=== PATIENT | female | born 1990 | race Caucasian/White ===

== ENCOUNTER 2021-09-03 16:45 | Emergency (ER) | payer OTHER, SELFPAY ==
--- NOTE | ~2021-09-03 | US_ITS ---
EXAMINATION: US pelvic complete DATE: 09/03/2021 17:58 INDICATION: Ovarian cyst presenting with abdominal pain. Assess for left ovarian torsion. TECHNIQUE: Multiple transabdominal and endovaginal sonographic images of the pelvis were obtained. COMPARISON: None. FINDINGS: The uterus measures 11.1 x 4.4 x 5.6 cm. The endometrial complex measures 8 mm in thickness. The rig ht ovary measures 2.5 x 1.4 x 1.8 cm. The left ovary measures 6.5 x 6.2 x 6.1 and contains a 5.9 cm s imple appearing anechoic cyst. Vascular flow identified at both ovaries on color Doppler. There is no free fluid in the pelvis. IMPRESSION: 1. 5.9 cm left ovarian cyst with vascular flow identified at the left ovary peripheral to the cyst on color Doppler. Reviewed, dictated and finalized at location A. REPAIR TECHNICIAN IMPRESSION: 1. 5.9 cm left ovarian cyst with vascular flow identified at the left ovary per ipheral to the cyst on color Doppler.
--- NOTE | ~2021-09-03 | XR_ITS ---
EXAMINATION: XR abdomen obstructive series DATE: 09/03/2021 18:00 INDICATION: Abdominal pain TECHNIQUE: Frontal supine and upright views of the abdomen were obtained. COMPARISON: None. FINDINGS: Moderate amount of scattered colonic stool. No dilated gas-filled loops of bowel to suggest obstructi on. No pneumatosis or free intraperitoneal gas. Lung bases are clear. Heart size is normal. Mild thor acolumbar levocurvature. IMPRESSION: 1. No free intraperitoneal gas or dilated gas-filled loops of bowel to suggest obstruction. Reviewed, dictated and finalized at location A. TRONIC GLUING MACHINE OPERATOR
[2021-09-03 16:57] VITALS: BP 138/72; PULSE 76; RESP 18; TEMP 36.9; O2SAT 100
--- NOTE | 2021-09-03 17:26 | ED.ABDPAIN ---
HPI - Abdominal Pain General Chief Complaint: Abdominal Pain Stated Complaint: ovarian cys Time Seen by Provider: 09/03/21 17:26 Source: patient Mode of arrival: ambulatory Limitations: no limitations History of Present Illness HPI narrative: Patient is 30 years old white female presents with sudden onset of left lower quadrant pain started 2 hours prior to arrival to the emergency room. 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 On September 01 the patient had another pelvic ultrasound which showed that the cyst is 4.2 cm. Patient came to our emergency room today concerned about the possibility of enlargement of the cyst. Patient denies any fever, chills, nausea, vomiting, urinary symptoms, constipation, diarrhea. 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 Related Data Home Medications Medication Instructions Recorded Confirmed drospirenone-ethinyl estradiol mg PO DAILY 09/03/21 leuprolide [Lupron Depot] 10 mg IM DAILY 09/03/21 09/03/21 Allergies Allergy/AdvReac Type Severity Reaction Status Date / Time adhesive tape AdvReac Mild Redness of Verified 09/03/21 17:13 Skin Review of Systems Review of Systems: CONSTITUTIONAL: Denies fever, chills, or sweats. EYES: Denies visual changes, redness, or discharge. ENT: Denies rhinorrhea, congestion, sore throat, or otalgia. CARDIOVASCULAR: Denies chest pain, palpitations, or edema. RESPIRATORY: Denies cough or dyspnea. GASTROINTESTINAL: Denies abdominal pain, nausea, vomiting, or diarrhea. GENITOURINARY: Denies dysuria or hematuria. SKIN: Denies rash or itching. MUSCULOSKELETAL: Denies back pain, joint pain, or myalgia. NEUROLOGIC: Denies headache, numbness, or weakness. PSYCHIATRIC: Denies anxiety or depression. Exam Narrative: General appearance: Well-developed, well-nourished. Patient sitting comfortably, does not look in pain or distress. Skin: Normal color Head: Normocephalic, nontraumatic Eyes: Clear conjunctiva ENT: Oropharynx normal, ears normal, nose normal Neck: Supple, nontender Chest and respiratory: Airway patent, no respiratory distress, no accessory muscle use Heart: Regular rate/rhythm Abdomen: Soft, nontender, no organomegaly, quiet bowel sounds, no guarding or rebound Vascular: Normal peripheral pulses, normal capillary refill. Musculoskeletal: Normal range of motion, nontender back Neurologic: Alert and oriented ?3, STEWARD/STEWARDESS SECOND is normal as tested, no gross motor deficit Course Course Emergency Course: Stable Vital Signs Vital signs: Vital Signs Temperature 36.9 C 09/03/21 16:57 Pulse Rate 76 09/03/21 16:57 Respiratory Rate 18 09/03/21 16:57 Blood Pressure 138/72 09/03/21 16:57 Pulse Oximetry 100 09/03/21 16:57 Temperature 36.9 C 09/03/21 16:57 Pulse Rate 76 09/03/21 16:57 Respiratory Rate 18 09/03/21 16:57 Blood Pressure 138/72 09/03/21 16:57 Pulse Oximetry 100 09/03/21 16:57 MDM - Abdominal Pain Imaging Data Radiologist's impression: ITS Impressions Pelvis Ultrasound 09/03/21 18:24 IMPRESSION: 1. 5.9 cm left ovarian cyst with vascular flow identified at the left ovary peripheral to the cyst on color Doppler. Abdomen X-Ray 09/03/21 18:36 IMPRESSION: 1. No free intraperitoneal gas or dilated gas-filled loops of bowel to suggest obstruction. Critical Care Time Critical Care Time Critical Care Time: No Discharge Plan Discharge Clinical Impression: Cyst of left ovary Patient Disposition: Home, Self-Care Condition: Stable Instructions: Antibiotic Form, Ovarian C
--- NOTE | 2021-09-03 17:29 | PC.NURSE ---
Dr. Cruz at bedside to see patient.
--- NOTE | 2021-09-03 18:46 | PC.NURSE ---
Dr. Cruz back at bedside to discuss imaging results.
[2021-09-03 19:07] VITALS: BP 135/83; PULSE 78; RESP 12; O2SAT 99
== END 2021-09-03 19:12 | disposition home or self-care (01) ==
PROVIDERS: Emergency Provider Emergency Medicine
DX: N83.202 Unspecified ovarian cyst, left side (principal)
CPT/HCPCS: 74019; 76856; 99284

== ENCOUNTER 2021-09-27 19:03 | Emergency (ER) | payer OTHER, SELFPAY ==
[2021-09-27 19:14] VITALS: BP 113/76; PULSE 89; RESP 15; TEMP 36.3; O2SAT 100
--- NOTE | 2021-09-27 19:21 | ED.GENADULT ---
HPI - General Adult General Chief complaint: Skin/Abscess/Foreign Body Stated complaint: allergic reaction Time Seen by Provider: 09/27/21 19:06 History of Present Illness HPI narrative: 30-year-old female presents the emergency room with complaints of a rash on her abdomen that started 3 days ago. Patient states 4 days ago she had laparoscopic surgery to remove an ovarian cyst, and started on [place]. States that rash appeared after taking the [place]. States rash is now spreading to her right leg and right hip. Denies shortness of breath, difficulty breathing, fever. States is taken Benadryl on a couple occasions with no relief of symptoms. Related Data Home Medications Medication Instructions Recorded Confirmed drospirenone-ethinyl estradiol mg PO DAILY 09/03/21 leuprolide [Lupron Depot] 10 mg IM DAILY 09/03/21 09/03/21 Allergies Allergy/AdvReac Type Severity Reaction Status Date / Time adhesive tape AdvReac Mild Redness of Verified 09/03/21 17:13 Skin Review of Systems Review of Systems: CONSTITUTIONAL: Denies fever, chills, or sweats. EYES: Denies visual changes, redness, or discharge. ENT: Denies rhinorrhea, congestion, sore throat, or otalgia. CARDIOVASCULAR: Denies chest pain, palpitations, or edema. RESPIRATORY: Denies cough or dyspnea. GASTROINTESTINAL: Denies abdominal pain, nausea, vomiting, or diarrhea. GENITOURINARY: Denies dysuria or hematuria. SKIN: Reports rash. MUSCULOSKELETAL: Denies back pain, joint pain, or myalgia. NEUROLOGIC: Denies headache, numbness, dizziness, or weakness. PSYCHIATRIC: Denies anxiety or depression. Exam Narrative: GENERAL: Well-appearing, well-nourished, and in no acute distress. HEAD: Normocephalic, atraumatic. EYES: PERRLA and EOMI. ENT: Nares clear, no rhinorrhea or epistaxis. Mucous membranes moist. Oropharynx without tonsillar hypertrophy exudate or other lesions. Bilateral TMs pearly bell nonbulging NECK: Supple. No adenopathy or masses. No carotid bruits or JVD CHEST: Clear to auscultation. No respiratory distress. No wheezes rales or rhonchi HEART: Regular rate and rhythm. No murmur heard. Normal peripheral pulses. ABDOMEN: Soft, nontender, nondistended, normal active bowel sounds. EXTREMITIES: Normal range of motion. No edema. SKIN: Diffuse, erythematous, maculopapular rash distributed to the abdomen, right hip, and right anterior lower extremity.. NEURO: No focal deficits. Alert and oriented x3. PSYCH: Normal mood and affect. Course Vital Signs Vital signs: Vital Signs Temperature 36.3 C L 09/27/21 19:14 Pulse Rate 89 09/27/21 19:14 Respiratory Rate 15 09/27/21 19:14 Blood Pressure 113/76 09/27/21 19:14 Pulse Oximetry 100 09/27/21 19:14 Temperature 36.3 C L 09/27/21 19:14 Pulse Rate 89 09/27/21 19:14 Respiratory Rate 15 09/27/21 19:14 Blood Pressure 113/76 09/27/21 19:14 Pulse Oximetry 100 09/27/21 19:14 Medical Decision Making Vital Signs Vital Signs: Vital Signs Temperature 36.3 C L 09/27/21 19:14 Pulse Rate 89 09/27/21 19:14 Respiratory Rate 15 09/27/21 19:14 Blood Pressure 113/76 09/27/21 19:14 Pulse Oximetry 100 09/27/21 19:14 Temperature 36.3 C L 09/27/21 19:14 Pulse Rate 89 09/27/21 19:14 Respiratory Rate 15 09/27/21 19:14 Blood Pressure 113/76 09/27/21 19:14 Pulse Oximetry 100 09/27/21 19:14 Discharge Plan Discharge Clinical Impression: Allergic reaction to drug Qualifiers: Encounter type: initial encounter Qualified Code(s): T78.40XA - Allergy, unspecified, initial encounter Patient Disposition: Home, Self-Care Condition: Stable Instructions: Antibiotic Form Additional Instructions: Recommend taking 25 to 50 mg of Benadryl every 6-8 hours as needed for rash. May substitute Benadryl for Zyrtec or Mary if you become too sleepy with Benadryl. Prescriptions: New prednisone 20 mg tablet 40 mg PO DAILY 5 Days Qty: 10 RF: 0 famotidine [
[2021-09-27] MEDS: SODIUM CHLORIDE 0.9% IV 1,000 ML 999 ML IV CONT (19:31)
[2021-09-27] MEDS: diphenhydrAMINE HCl INJ 50 MG/ML VIAL 25 MG IV PUSH (19:36)
[2021-09-27] MEDS: methylPREDNISolone SOD SUCC 125 MG VIAL IV PUSH (19:36)
[2021-09-27] MEDS: FAMOTIDINE 20 MG/2 ML VIAL IV PUSH (19:36)
== END 2021-09-27 20:10 | disposition home or self-care (01) ==
PROVIDERS: Emergency Provider Nurse Practitioner Family
DX: L27.0 Generalized skin eruption due to drugs and medicaments taken internally (principal); T50.995A Adverse effect of other drugs, medicaments and biological substances, initial encounter
CPT/HCPCS: 96361; 96374; 96375; 99284; J1200; J2930; J7030

== ENCOUNTER 2021-10-14 10:11 | Emergency (ER) | payer OTHER, SELFPAY ==
[2021-10-14 10:42] VITALS: BP 104/86; PULSE 89; RESP 18; TEMP 36.7; O2SAT 100
--- NOTE | 2021-10-14 10:45 | ED.GENADULT ---
HPI - General Adult General Chief complaint: Upper Respiratory Infection Stated complaint: sinus pressure,lt ear pain Time Seen by Provider: 10/14/21 10:45 Source: patient and RN notes reviewed Mode of arrival: ambulatory Limitations: no limitations History of Present Illness HPI narrative: 30-year-old female presented with complaint of sinus pressure, left facial pain, and left ear pain for 1 week. Denies associated tinnitus, decreased hearing, dizziness, cough, shortness breath, wheezing, nausea, vomiting, diarrhea, fever or chills. Taking benadryl. Denies sick contacts. She is vaccinated for COVID she is not vaccinated for flu. Related Data Allergies Allergy/AdvReac Type Severity Reaction Status Date / Time hydrocodone Allergy Rash Verified 10/14/21 11:03 adhesive tape AdvReac Mild Redness of Verified 10/14/21 11:03 Skin Review of Systems Review of Systems: CONSTITUTIONAL:denies malaise, chills, sweats, fever EYES: Denies visual changes, redness, or discharge ENT: Reports rhinorrhea, congestion, sinus pain, otalgia CARDIOVASCULAR: Denies chest pain, palpitations, edema RESPIRATORY: denies cough, post nasal drainage, dyspnea GASTROINTESTINAL: Denies abdominal pain, nausea, vomiting, diarrhea SKIN: Denies rash or itching MUSCULOSKELETAL: Endorses myalgia NEUROLOGIC: Denies headache Exam Narrative: GENERAL: well appearing HEAD: Normocephalic EYES: PERRLA, conjunctivae clear ENT: Mucous membranes moist. TM pearly bell with dull light reflex bilaterally; no tragal tenderness. Oropharynx erythematous with white exudate, no drooling, no hoarseness, no trismus, uvula midline. No tripod positioning, muffled voice, soft palate or pharyngeal wall bulging NECK: Supple. No lymphadenopathy CHEST: Clear to auscultation, breath sounds equal. No wheezing, rhonchi, rales, or stridor. No respiratory distress, speaks in full sentences. HEART: Regular rate and rhythm. No murmur heard. SKIN: Warm, dry, no rash. NEURO: Alert and oriented x3. PSYCH: Normal mood and affect Course Course Emergency Course: Patient is aware of diagnosis, understands and agrees to treatment plan. Anticipatory guidance given. Patient agrees to follow-up as directed and is aware of reasons to seek care at the emergency department. Portions of this record may have been created with voice recognition software Level of Care: Express Care Visit Vital Signs Vital signs: Vital Signs Temperature 98.0 F 10/14/21 10:42 Pulse Rate 89 10/14/21 10:42 Respiratory Rate 18 10/14/21 10:42 Blood Pressure 104/86 10/14/21 10:42 Pulse Oximetry 100 10/14/21 10:42 Temperature 98.0 F 10/14/21 10:42 Pulse Rate 89 10/14/21 10:42 Respiratory Rate 18 10/14/21 10:42 Blood Pressure 104/86 10/14/21 10:42 Pulse Oximetry 100 10/14/21 10:42 reviewed Medical Decision Making MDM Narrative Medical decision making narrative: strep positive Appropriate for out pt treatment and f/u. There are no focal signs of space occupying lesions that are compromising to the airway; no dysphagia, odynophagia, dysphonia, or dyspnea. No uvular deviation or soft palate edema. Patient is non-toxic appearing. The floor of the mouth is soft with no signs of Jamil's Angina; no induration below mandible, no neck pain. Patient is without trismus or drooling and able to swallow secretions. Differential Diagnosis Differential Diagnosis: Influenza, covid, sinusitis, OM, strep pharyngitis, URI Vital Signs Vital Signs: Vital Signs Temperature 98.0 F 10/14/21 10:42 Pulse Rate 89 10/14/21 10:42 Respiratory Rate 18 10/14/21 10:42 Blood Pressure 104/86 10/14/21 10:42 Pulse Oximetry 100 10/14/21 10:42 Temperature 98.0 F 10/14/21 10:42 Pulse Rate 89 10/14/21 10:42 Respiratory Rate 18 10/14/21 10:42 Blood Pressure 104/86 10/14/21 10:42 Pulse Oximetry 100 10/14/21 10:42 Lab Data Labs: Strep Screen Positive Group A
== END 2021-10-14 11:16 | disposition home or self-care (01) ==
PROVIDERS: Emergency Provider Nurse Practitioner Family
DX: J02.0 Streptococcal pharyngitis (principal)
CPT/HCPCS: 87880; 99213; G0463

== ENCOUNTER 2022-05-02 12:04 | Observation (INO) | payer BC, SELFPAY ==
--- NOTE | ~2022-05-02 | US_ITS ---
EXAMINATION: US right upper quadrant DATE: 05/02/2022 13:57 INDICATION: Right upper quadrant abdominal pain. Second trimester of . TECHNIQUE: Multiple grayscale and Doppler ultrasound images of the abdomen were obtained. COMPARISON: None FINDINGS: The visualized portions of the head, body, and tail of the pancreas are normal. The liver i s normal without focal lesion. There is normal flow in main portal vein. The gallbladder is normal in size. No gallstones or gallbladder wall thickening. There was no sonographic Irizarry sign. The common duct is normal and measures 2 mm. IMPRESSION: 1. Normal right upper quadrant ultrasound. Reviewed, dictated and finalized at location A.
--- NOTE | 2022-05-02 12:30 | OBADM ---
This patient, Tati Pepper, admitted to the OB room [facility] for observation. Patient/family oriented to hospital policies and general routines including ID bracelet, bed and alarms, visiting hours, pain management, procedures, bathroom and other care routines, personal items, smoking policy, room service/diet, and visiting hours. Patient/Family are encouraged to report perceived risks to care and to ask questions if they do not understand what they are told or what they should do.
[2022-05-02 12:31] VITALS: BP 114/67; PULSE 97
--- NOTE | 2022-05-02 12:50 | PC.NURSE ---
1232- Spoke with Dr. pena, Orders to draw CBC, CMP and lipase, and orders RUQ US.
[2022-05-02 12:55] LABS: Hematocrit 35.3 % (37.0-47.0); Hemoglobin 12.4 g/dL (12.0-15.0); Mean Corpuscular HGB Conc 35.1 g/dl (32-36); Mean Corpuscular Hemoglobin 31.9 pg (26-34); Mean Corpuscular Volume 90.7 fl (80-100); Mean Platelet Volume 9.5 fl (7.4-10.4); Platelet Count Result 223 k/mm3 (150-375); Red Blood Count 3.89 M/mm3 (4.2-5.4); Red Cell Distribution Width 14.1 % (11.5-14.5); White Blood Count 13.5 K/mm3 (4.5-10.0)
[2022-05-02 13:09] LABS: Alanine Aminotransferase 18 U/L (6-35); Albumin Level 3.6 g/dL (3.5-5.1); Alkaline Phosphatase 78 U/L (38-126); Anion Gap 5 mmol/L (8-16); Aspartate Amino Transferase 21 U/L (14-36); Bilirubin,Total 0.4 mg/dL (0.2-1.3); Blood Urea Nitrogen 6 mg/dL (7-17); Calcium 8.4 mg/dL (8.4-10.2); Carbon Dioxide 20 mmol/L (22-30); Chloride 108 mmol/L (98-107); Estimated Glomerular Filt Rate > 60; Glucose 77 mg/dL (65-110); Lipase 45 U/L (23-300); Potassium 3.9 mmol/L (3.4-5.0); Sodium 133 mmol/L (137-145)
--- NOTE | 2022-05-02 15:18 | PC.NURSE ---
1452- SPoke with Dr. Garcia, labs and US reviewed. Orders to discharge to home.
--- NOTE | 2022-05-05 05:38 | PM.OBTRLD ---
OB - Triage/Final Diagnosis Visit Information Comments/Additional reasons for admission: I have assessed the risk for this patient, Tati Pepper, and determined that she would benefit from observation care. Evaluation Laboratory results: Laboratory Tests 05/02/22 05/02/22 12:40 12:40 WBC 13.5 H RBC 3.89 L Hgb 12.4 Hct 35.3 L MCV 90.7 MCH 31.9 MCHC 35.1 RDW 14.1 Plt Count 223 MPV 9.5 Sodium 133 L Potassium 3.9 Chloride 108 H Carbon Dioxide 20 L Anion Gap 5 L BUN 6 L Creatinine 0.50 L Estim Creat Clear Calc Not Reportable Estimated GFR > 60 Glucose 77 Calcium 8.4 Total Bilirubin 0.4 AST 21 ALT 18 Alkaline Phosphatase 78 Total Protein 7.0 Albumin 3.6 Lipase 45 Final Diagnosis (1) Abdominal pain affecting : Code(s): O26.899 - Other specified related conditions, unspecified trimester; R10.9 - Unspecified abdominal pain Status: Acute
== END 2022-05-02 15:20 | disposition home or self-care (01) ==
PROVIDERS: Admitting Provider Obstetrics & Gynecology; Visit Provider Obstetrics & Gynecology
DX: O26.899 Other specified pregnancy related conditions, unspecified trimester (principal); R10.9 Unspecified abdominal pain; Z3A.00 Weeks of gestation of pregnancy not specified
CPT/HCPCS: 36415; 76705; 80053; 83690; 85027; G0378; G0379

== ENCOUNTER 2022-05-27 16:41 | Outpatient (RCR) | payer BC, SELFPAY ==
[2022-05-27 17:56] LABS: Basophils Percent Auto 0.3 % (0.2-1.2); Eosinophils Absolute Auto 0.1 K/mm3 (0-0.3); Eosinophils Percent Auto 0.8 % (0-4.4); Hematocrit 33.6 % (37.0-47.0); Hemoglobin 11.6 g/dL (12.0-15.0); Immature Granulocyte Absolute 0.11 K/mm3 (0.00-0.031); Lymphocytes Absolute Auto 2.73 K/mm3 (0.9-3.2); Lymphocytes Percent Auto 23.8 % (18.3-44.2); Mean Corpuscular HGB Conc 34.5 g/dl (32-36); Mean Corpuscular Hemoglobin 32.6 pg (26-34); Mean Corpuscular Volume 94.4 fl (80-100); Monocytes Absolute Auto 0.6 K/mm3 (0.1-0.6); Monocytes Percent Auto 5.4 % (2.6-8.5); Neutrophils Absolute Auto 7.9 K/mm3 (1.3-6.7); Neutrophils Percent Auto 68.7 % (45.5-73.1); Platelet Count Result 218 k/mm3 (150-375); Red Blood Count 3.56 M/mm3 (4.2-5.4); Red Cell Distribution Width 13.8 % (11.5-14.5); White Blood Count 11.5 K/mm3 (4.5-10.0)
[2022-05-27 18:07] LABS: Glucose 1 Hour PP 50gm Dose 96 mg/dL
[2022-05-27 18:49] LABS: HIV 1/2 Ab P24 Ag Result Negative (Negative)
[2022-05-30] MEDS: RHO(D) IMMUNE GLOBULIN 300 MCG/2 ML SYRINGE IM (12:06)
== END 2022-08-25 23:59 | disposition home or self-care (01) ==
LOC: ANHLAB 16:41
PROVIDERS: Visit Provider Obstetrics & Gynecology
DX: Z11.4 Encounter for screening for human immunodeficiency virus [HIV] (principal); Z29.13 Encounter for prophylactic Rho(D) immune globulin; O36.0190 Maternal care for anti-D [Rh] antibodies, unspecified trimester, not applicable or unspecified; Z3A.00 Weeks of gestation of pregnancy not specified
CPT/HCPCS: 36415; 82947; 85025; 85461; 86703; 86850; 86900; 86901; 90384; 96372; G0432; J2790

== ENCOUNTER 2022-06-25 10:15 | Emergency (ER) | payer BC, SELFPAY ==
[2022-06-25 10:23] VITALS: BP 104/57; PULSE 139; RESP 18; TEMP 37.2; O2SAT 100
--- NOTE | 2022-06-25 10:54 | ED.URI ---
HPI - URI/Sore Throat General Chief Complaint: Upper Respiratory Infection Stated Complaint: Congestion,Cough Source: patient Mode of arrival: ambulatory History of Present Illness HPI Narrative: This is a woman that is due in July 20 and presented to our urgent care with complaints of congestion, with a wet cough nonproductive, sore throat, body aches, and chills. Patient is not taking anything at for her symptoms due to her . She also does complain of slight shortness of breath. The patient denies , CP, palpitation, extremity numbness, lightheadedness, dizziness, constipation, diarrhea, or fever. Related Data Home Medications Medication Instructions Recorded Confirmed vitamin-ferrous fumarate 1 cap PO DAILY 02/09/22 06/25/22 65 mg iron-folic acid 1 mg capsule magnesium citrate,mag oxide 250 mg 25 mg PO DAILY 04/06/22 06/25/22 capsule Allergies Allergy/AdvReac Type Severity Reaction Status Date / Time hydrocodone Allergy Severe Rash Verified 06/25/22 10:23 adhesive tape AdvReac Mild Redness of Verified 06/25/22 10:23 Skin Review of Systems Review of Systems: All systems reviewed & are unremarkable except as noted in HPI and below PMFSH Surgical History Surgical History H/O tubal ligation (~07/19/18) Hx of ovarian cystectomy (~09/25/21) Family History Family History Father Testicular cancer Social History Social History Smoking status: Former smoker Smoking end date: 07/19/19 Alcohol intake: never Substance use: never Substance use type: does not use Additional living arrangements comments: 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 HEAD: normocephalic, atraumatic. EYES: PERRL. Sclera clear/white. Vision is grossly intact. EARS: External ears normal, auditory canals clear and without drainage, TMs normal without perforation. Hearing grossly intact. NOSE: External nose normal with no obvious nasal discharge, nares without redness, no rhinorrhea. THROAT: Mucous membranes moist, posterior pharynx clear. NECK: Neck supple, non-tender without lymphadenopathy, masses or thyromegaly. CARDIOVASCULAR: Regular rate and rhythm without murmurs, gallops, or rubs. RESPIRATORY: Clear to auscultation. Breath sounds equal bilaterally. No wheezes, rales, or rhonchi. GASTROINTESTINAL: Abdomen soft, non-tender, nondistended. Bowel sounds are active. No hepato-splenomegaly, or palpable masses. No guarding. SKIN: warm, intact with no suspicious lesions or rash, good texture and turgor. NEURO: awake, alert, and oriented to person, place and time. There were no obvious focal neurologic abnormalities. EXTREMITIES: Normal range of motion. No edema. No calf tenderness. Course Course Level of Care: Express Care Visit Vital Signs Vital signs: Vital Signs Temperature 98.9 F 06/25/22 10:23 Pulse Rate 139 H 06/25/22 10:23 Respiratory Rate 18 06/25/22 10:23 Blood Pressure 104/57 L 06/25/22 10:23 Pulse Oximetry 100 06/25/22 10:23 Oxygen Delivery Room Air 06/25/22 10:23 Temperature 98.9 F 06/25/22 10:23 Pulse Rate 139 H 06/25/22 10:23 Respiratory Rate 18 06/25/22 10:23 Blood Pressure 104/57 L 06/25/22 10:23 Pulse Oximetry 100 06/25/22 10:23 Oxygen Delivery Room Air 06/25/22 10:23 MDM - URI/Sore Throat MDM Narrative Medical decision making narrative: Patient will discharge with albuterol given a list medications that she can buy over the counter the safe is her and instructed to call her OB Gyne for additional instructions
== END 2022-06-25 10:55 | disposition home or self-care (01) ==
PROVIDERS: Emergency Provider Nurse Practitioner
DX: O98.519 Other viral diseases complicating pregnancy, unspecified trimester (principal); B34.9 Viral infection, unspecified; Z3A.00 Weeks of gestation of pregnancy not specified; Z87.891 Personal history of nicotine dependence
CPT/HCPCS: 99213; G0463

== ENCOUNTER 2022-07-07 13:30 | Outpatient (RCR) | payer BC, SELFPAY ==
--- NOTE | 2022-06-10 11:38 | PTOPEVAL1 ---
Assessment and note entered by Dulce Stewart DPT Evaluation Information Assessment Status Evaluation Subjective Information Pt reports L SIJ pain for at least several weeks. Highest pain 9/10 and lowest 0/10. Pain is localized to L PSIS, no radiation. Pain increases with the act of sitting down, sometimes turning her body to the right, getting in/out of the car, and rolling over in bed. Pt is currently 30 weeks . Reports difficulty with her normal work activities due to the pain. This is patient's 4th , did not have this kind of back pain previously. Reported Pain Level Pain Score 0: Self Report Assessment PT Clinical Summary The patient is presenting to skilled therapy at 30 weeks with a several week history of L SIJ pain. She presents with SIJ impairments that are contributing to her pain with position changes and other activities. She will benefit from therapy to address these impairments and safely reduce pain as her progresses. Plan of Care Interventions Gait Training,Hot Pack/Cold Pack,Manual Therapy, Neuro Re-education,Patient/Caregiver Education, Therapeutic Activities,Therapeutic Exercise,Self- Care/Home Management PT Services Indicated Yes Treatment Frequency and 1 time a week for 4 weeks Duration These treatments will address the objective and functional deficits as defined above. The patient will be advanced safely and appropriately in order for the patient to progress towards his/her prior level of function. Additional exercises will be introduced and as well as a comprehensive home exercise program upon discharge, if needed, ?to ensure carryover of functional gains achieved in the clinic. This treatment plan has been reviewed and agreement upon by the patient.
--- NOTE | 2022-07-07 13:58 | PTOPPROGNS ---
Assessment and note entered by Dulce Stewart DPT Evaluation Information Assessment Status Progress Subjective Information The patient reports she has had no recent pain, the therapy worked . 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 Assessment PT Clinical Summary The patient has made excellent progress in therapy and reports no recent pain or limitation. She feels confident in continuing her HEP independently. She has been educated if her pain returns in the next 6 weeks until delivery she can call and schedule therapy. Otherwise, this visit will serve as her discharge. Plan of Care PT Services Indicated No These treatments will address the objective and functional deficits as defined above. The patient will be advanced safely and appropriately in order for the patient to progress towards his/her prior level of function. Additional exercises will be introduced and as well as a comprehensive home exercise program upon discharge, if needed, ?to ensure carryover of functional gains achieved in the clinic. This treatment plan has been reviewed and agreement upon by the patient.
--- NOTE | 2022-07-27 13:04 | PTOPDC ---
Assessment and note entered by Dulce Stewart DPJamie Evaluation Information Assessment Status Progress Subjective Information The patient reports she has had no recent pain, the therapy worked . 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
== END 2022-07-27 14:10 | disposition home or self-care (01) ==
LOC: ANHGOSHPT 13:30
PROVIDERS: Visit Provider Obstetrics & Gynecology
DX: M25.559 Pain in unspecified hip (principal); N94.9 Unspecified condition associated with female genital organs and menstrual cycle
CPT/HCPCS: 97110; 97140; 97161

== ENCOUNTER 2022-08-03 18:57 | Observation (INO) | payer BC, SELFPAY ==
[2022-08-03 21:33] VITALS: BMI 29.6
--- NOTE | 2022-08-03 21:33 | OBADM ---
This patient, Tati Pepper, admitted to the OB room Labor/Delivery/Recovery 104 for observation. Patient/family oriented to hospital policies and general routines including ID bracelet, bed and alarms, visiting hours, pain management, procedures, bathroom and other care routines, personal items, smoking policy, room service/diet, and visiting hours. Patient/Family are encouraged to report perceived risks to care and to ask questions if they do not understand what they are told or what they should do.
--- NOTE | 2022-08-04 07:38 | PM.OBTRLD ---
OB - Triage/Final Diagnosis Visit Information Date of evaluation: 08/03/22 Reason for evaluation: threatened labor Comments/Additional reasons for admission: I have assessed the risk for this patient, Tati Pepper, and determined that she would benefit from observation care.
== END 2022-08-03 21:45 | disposition home or self-care (01) ==
PROVIDERS: Admitting Provider Student in an Organized Health Care Education/Training Program; Visit Provider Student in an Organized Health Care Education/Training Program
DX: O47.1 False labor at or after 37 completed weeks of gestation (principal); Z3A.38 38 weeks gestation of pregnancy
CPT/HCPCS: G0378; G0379

== ENCOUNTER 2022-08-07 06:25 | Inpatient (IN) | payer BC, SELFPAY ==
[2022-08-07] VITALS (74 sets, daily range): BP systolic 106–137; BP diastolic 56–95; PULSE 26–152; RESP 16–18; TEMP 36.6–37.6; O2SAT 81–100; BMI 29.5
--- OUTSIDE RECORDS SUMMARY | 2022-08-07 06:32 | XMS_ITS | Continuity of Care Document ---
Author Name Unknown Organization [facility] Address [address], [place] [id number] Care Team Providers Care Customer Support Representative Name Role Phone [facility], FAX Primary Care Physician Unavailab le Encounter [facility] Financial Number [id number] Date(s): 12/08/21 - 12/08/[address] [phone] Discharge Disposition: Home or Self Care Attending Physician: NOLA Cabral Referring Physician: NOLA Cabral Problem List Diagnosis Diagnosis Type Effective Dates Health Status Cl inical Service Informant Encounter for test, result unknown 12/08/21 Non-Specified Encounter for screening for other suspected endocrine disorder 12/08/21 Non-Specified Encounter for test, result unknown 12/08/21 Non-Specified Encounter for screening for other suspected endocrine disorder 12/08/21 Non-Specified Encounter for test, result unknown 12/08/21 Non-Specified Encounter for screening for other suspected endocrine disorder 12/08/21 Non-Specified Results Laboratory List Name Date Estradiol Level 12/08/21 HCG, Quantitative Serum 12/08/21 Progesterone Level 12/08/21 Most recent to oldest [Reference Range]: 1 Estradiol 569.7 pg/mL (12/08/21 12:08 PM) Progesterone 38.6 ng/mL (12/08/21 12:08 PM) hCG, Quantitative 326 mIU/mL (12/08/21 12:08 PM) Care Team Personnel Name: Marianna, FAX
[2022-08-07] MEDS: LACTATED RINGERS 1,000 ML 125 ML IV CONT ×2 (07:15→08:01)
[2022-08-07] MEDS: OXYTOCIN 30 UNITS/NS 500 ML 30 UNITS/500 ML BAG IV CONT (07:16)
--- NOTE | 2022-08-07 07:17 | WPDANESEPP ---
Anes - Eval Pre Procedure Procedure: labor epidural Date/Time: 08/07/22 07:17 Preop Diagnosis: labor pain Pre Op Diagnosis: Induction of Labor Patient Data Age: 31 Gender: F Height: Weight: Last Vital Signs Pulse 95 08/07/22 07:10 BP 117/75 08/07/22 07:10 Allergies Allergy/AdvReac Type Severity Reaction Status Date / Time hydrocodone Allergy Severe Rash Verified 08/03/22 09:34 adhesive tape AdvReac Mild Redness of Verified 08/03/22 09:34 Skin Home Medications Medication Instructions Recorded Confirmed Type vitamin-ferrous fumarate 1 cap PO DAILY 02/09/22 07/29/22 History 65 mg iron-folic acid 1 mg capsule magnesium citrate,mag oxide 250 mg 25 mg PO DAILY 04/06/22 07/29/22 History capsule albuterol sulfate 90 mcg/actuation 2 puff inhalation QID PRN 06/25/22 07/29/22 Rx aerosol inhaler shortness of breath or wheezing #8.5 grams albuterol sulfate 90 mcg/actuation 90 mcg inhalation Q6H PRN 06/25/22 07/29/22 Rx breath activated powder shortness of breath 4 weeks #1 ea inhaler,sensor diphenhydramine HCl 25 mg capsule 25 mg PO QHS PRN 08/03/22 History (Benadryl) Laboratory Tests 08/07/22 08/07/22 07:08 07:08 WBC Pending RBC Pending Hgb Pending Hct Pending MCV Pending MCH Pending MCHC Pending RDW Pending Plt Count Pending MPV Pending Immature Gran % (Auto) Pending Neut % (Auto) Pending Lymph % (Auto) Pending [place] % (Auto) Pending Eos % (Auto) Pending Baso % (Auto) Pending Lymph # (Auto) Pending [place] # (Auto) Pending Eos # (Auto) Pending Baso # (Auto) Pending Abs Immat Gran (auto) Pending Absolute Neuts (auto) Pending Absolute Nucleated RBC Pending Nucleated RBC % Pending RPR Pending Patient hx anesthesia problems: none Family hx anesthesia problems: none Results Review: All pre-operative results and documents have been reviewed as part of the pre-operative evaluation. 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
[2022-08-07 07:20] LABS: Basophils Percent Auto 0.3 % (0.2-1.2); Eosinophils Absolute Auto 0.1 K/mm3 (0-0.3); Hematocrit 37.4 % (37.0-47.0); Immature Granulocyte Absolute 0.09 K/mm3 (0.00-0.031); Lymphocytes Absolute Auto 2.57 K/mm3 (0.9-3.2); Lymphocytes Percent Auto 27.6 % (18.3-44.2); Mean Corpuscular HGB Conc 34.8 g/dl (32-36); Mean Corpuscular Hemoglobin 32.7 pg (26-34); Mean Platelet Volume 9.8 fl (7.4-10.4); Monocytes Absolute Auto 0.6 K/mm3 (0.1-0.6); Monocytes Percent Auto 5.9 % (2.6-8.5); Neutrophils Percent Auto 64.2 % (45.5-73.1); Platelet Count Result 185 k/mm3 (150-375); Red Blood Count 3.98 M/mm3 (4.2-5.4); Red Cell Distribution Width 13.5 % (11.5-14.5); White Blood Count 9.3 K/mm3 (4.5-10.0)
--- NOTE | 2022-08-07 07:47 | WPDHPUPDATE1 ---
History and Physical Update Update Date/Time: 08/07/22 07:47 History and Physical has been reviewed, including an updated exam of the patient. There are NO changes in the patient's condition. Risks, benefits, and alternatives have been discussed and questions answered. Patient agrees to proceed with procedure.
--- NOTE | 2022-08-07 07:47 | WPDOBADMIT ---
Obstetrics - Admit Note Admission Note: record reviewed. No pertinent additions to the history and/or any subsequent changes in the physical findings that are not consistent with the expected course of the were found. Additions to the history and/or subsequent changes in the physical findings follow. None.
--- NOTE | 2022-08-07 07:49 | LDADM ---
This patient, Tati Pepper, was admitted to Labor/Delivery/Recovery 108 on 08/07/22 at 06:25. Plans for labor, pain management and were discussed with patient. Patient/family oriented to hospital policies and general routines including ID bracelet, bed and alarms, visiting hours, pain management, procedures, bathroom and other care routines, personal items, smoking policy, room service/diet and guest tray routines, infant security routines, and visiting hours. Patient/Family are encouraged to report perceived risks to care and to ask questions if they do not understand what they are told or what they should do. See OBIX for further documentation.
--- NOTE | 2022-08-07 10:24 | WPDHPUPDATE1 ---
History and Physical Update Update Date/Time: 08/07/22 10:24 History and Physical has been reviewed, including an updated exam of the patient. There are NO changes in the patient's condition. Risks, benefits, and alternatives have been discussed and questions answered. Patient agrees to proceed with procedure.
--- NOTE | 2022-08-07 10:24 | PM.OBPRVD ---
OB - Delivery Note Procedure Induction method: AROM and Per Pitocin Protocol Delivery monitor: External FHT and External Uterine Route of delivery: Episiotomy description: None Laceration Description: None Specimen: No Quantitative Blood Loss (ml): 350 Anesthesia type: Epidural Disposition: Floor Complications: none Narrative: patient prepped and draped usual manner for this procedure. Maternal expulsive effort readily delivered vertex in the rest of baby followed without difficulty. Cord was clamped and cut and the placenta delivered spontaneously. Uterus was well contracted and no significant bleeding was encountered. Cervix vagina and vulva were inspected with no tears or lacerations. At this point the immediate postop condition of mother and baby were both excellent. [place] Baby Weeks of gestation at delivery: 39 Infant gender: Female Weight (pounds): 8 Weight (ounces): 0 presentation: vertex Placenta delivery description: Spontaneous Cord Vessel Description: 3 Vessels score one minute: 9 score five minutes: 9 AMG Delivery Billing Delivery Delivery: Delivery Charge
--- NOTE | 2022-08-07 10:27 | P.DS_ITS ---
DS: Admitting Diagnosis Discharge Date 08/08/2022 Admitting Diagnosis OB - DS: Summary OB Procedures : None OB Procedures Intrapartum: Spontaneous Vag Delivery OB Procedures: : None Time Spent with Patient Time attestation: Total time spent providing and/or coordinating discharge services: DS: Data Data Completed and Pending Labs on day of discharge: Labs from last 24 hours 08/07/22 08/07/22 08/07/22 07:08 07:08 07:08 WBC 9.3 RBC 3.98 L Hgb 13.0 Hct 37.4 MCV 94.0 MCH 32.7 MCHC 34.8 RDW 13.5 Plt Count 185 MPV 9.8 Immature Gran % (Auto) 1.0 H Neut % (Auto) 64.2 Lymph % (Auto) 27.6 [place] % (Auto) 5.9 Eos % (Auto) 1.0 Baso % (Auto) 0.3 Lymph # (Auto) 2.57 [place] # (Auto) 0.6 Eos # (Auto) 0.1 Baso # (Auto) 0.0 Abs Immat Gran (auto) 0.09 H Absolute Neuts (auto) 6.0 Absolute Nucleated RBC 0.0 Nucleated RBC % 0.0 RPR Pending Blood Type O Negative Antibody Screen Positive Antibody Identification Pending Antigen Identification Pending AFSANEH, IgG Interpret Pending AFSANEH, Poly Interpret Pending AFSANEH, Complement Interp Pending Discharge Plan Discharge Discharging Clinician: Hector Gorman Patient Disposition: Home, Self-Care Activity: as tolerated Diet: as tolerated Patient Instructions: Antibiotic Form Stand Alone Forms: General Discharge Information Follow-up/Referrals: Hector Gorman MD [Physician] - 3 Weeks Discharge Medications: New ibuprofen 800 mg tablet 800 mg PO TID PRN (Reason: pain) Qty: 30 0RF Continued magnesium citrate,mag oxide 250 mg capsule 25 mg PO DAILY diphenhydramine HCl [Benadryl] 25 mg capsule 25 mg PO QHS PRN (Reason: Sleep) vit-iron fum-folic ac 65 mg iron- 1 mg capsule 1 cap PO DAILY Date of admission: 08/07/22 06:25 Primary Care Provider: [place], Admitting Provider: Hector Gorman Attending physician on admission: Hector Gorman Condition: Stable
[2022-08-07] MEDS: OXYTOCIN 30 UNITS/NS 500 ML 30 UNITS/500 ML BAG 125 UNITS IV CONT (10:35)
[2022-08-07 14:20] LABS: Rapid Plasma Reagin Non-Reactive (NonReactive)
[2022-08-07] MEDS: WITCH HAZEL 40 PADS 1 PAD TOPICAL (14:22)
--- NOTE | 2022-08-07 14:34 | OBPPTRN ---
Patient transferred to post room # 276 via wheelchair. Oriented to unit, room, information board, rooming in, admission packet and security measures. Patient verbalizes understanding.
[2022-08-07] MEDS: IBUPROFEN 600 MG TABLET PO (19:43)
[2022-08-08 04:28] VITALS: BP 119/74; PULSE 77; RESP 18; TEMP 37.1; O2SAT 100
[2022-08-08 05:25] LABS: Hematocrit 33.4 % (37.0-47.0); Hemoglobin 11.5 g/dL (12.0-15.0)
[2022-08-08 08:00] VITALS: BP 101/67; PULSE 89; RESP 16; TEMP 36.6; O2SAT 96
--- NOTE | 2022-08-08 08:04 | PM.OBPNVD ---
OB - PN: Subj Subjective Date/time seen: 08/08/22 0700 Patient comments: no complaints and pain well controlled baby status: other (surrogate ) OB - PN: Obj Data Labs 08/08/22 03:54 Labs: Laboratory Results - last 24 hr 08/07/22 08/07/22 08/08/22 07:08 07:08 03:54 Hgb 11.5 L Hct 33.4 L RPR Non-reactive Blood Type O Negative Antibody Screen Positive Antibody Identification Inconclusive Antigen Identification Not Reportable AFSANEH, IgG Interpret Not Performed AFSANEH, Poly Interpret Neg AFSANEH, Complement Interp Not Performed 08/08/22 03:54 Hgb Hct RPR Blood Type O Negative Antibody Screen Antibody Identification Antigen Identification AFSANEH, IgG Interpret AFSANEH, Poly Interpret AFSANEH, Complement Interp OB - PN A/P Plan day: 1 Plan: discharge home Time Spent With Patient Time: Total time spent is greater than 50% in coordination of care (as documented) at patient's floor/unit and/or counseling patient: Review of Systems Review of Systems: All systems reviewed & are unremarkable except as noted in HPI and below Exam Narrative: Alert and oriented. Mood is pleasant and cooperative. Urinating without difficulty. Denies passing any large clots. Perineum with minimal edema. Fundus firm and below umbilicus. Const: General: cooperative, healthy appearing, no acute distress and alert Orientation/consciousness: patient oriented x3 Limitations: no limitations Resp: Effort & Inspection: normal respiratory effort Auscultation: clear to auscultation bilaterally Cardio: Rate: regular rate GI: Inspection: normal to inspection Neuro: General: patient oriented x3 Extrem: General: normal to inspection Psych: Appearance: grossly normal Mental Status: mental status grossly normal Affect: normal affect Thought process: Normal thought process present
--- NOTE | 2022-08-08 08:55 | WPDANLDPN2 ---
Anes-Prog Note L&D Date/Time: 08/08/22 08:55 Comfortable throughout: labor and delivery Neuraxial method: epidural Epidural/Spinal procedure site: clean & non-tender Neuro status: Neuro function grossly intact. Cardiovascular status: normal Respiratory status: normal Airway patency: baseline Mental status: baseline Post-Op hydration status: normal Vital Signs: Last Vital Signs Temp 37.1 C 08/08/22 04:28 Pulse 77 08/08/22 04:28 Resp 18 08/08/22 04:28 BP 119/74 08/08/22 04:28 Pulse Ox 100 08/08/22 04:28 O2 Del Method Room Air 08/07/22 20:00 Pain score (VAS): 0 Post-procedural complaints: none Patient feedback: Patient satisfied with anesthetic care.
[2022-08-08] MEDS: RHO(D) IMMUNE GLOBULIN 300 MCG/2 ML SYRINGE IM (11:32)
== END 2022-08-08 11:43 | disposition home or self-care (01) | DRG 807 ==
LOC: ANHLDR 10:32 → ANHOB2 14:41
PROVIDERS: Admitting Provider Obstetrics & Gynecology; Visit Provider Obstetrics & Gynecology
DX: O62.3 Precipitate labor (principal); Z37.0 Single live birth; Z3A.39 39 weeks gestation of pregnancy
CPT/HCPCS: 36415; 85014; 85018; 85025; 85461; 86592; 86850; 86880; 86900; 86901; 86902; 90384; A9270; J2590; J2790; J2795; J7120

== ENCOUNTER 2022-09-28 08:13 | Emergency (ER) | payer BC, OTHER, SELFPAY ==
[2022-09-28 08:54] VITALS: BP 121/70; PULSE 84; RESP 18; TEMP 36.5; O2SAT 99
--- NOTE | 2022-09-28 09:26 | ED.URI ---
HPI - URI/Sore Throat General Chief Complaint: Upper Respiratory Infection Stated Complaint: sorethroat Source: patient Mode of arrival: ambulatory Limitations: no limitations History of Present Illness HPI Narrative: 31-year-old female presents to [facility] with complaints of sore throat and runny nose for the past 2-3 days. 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 Patient has not tried taking any [id number] medications for her symptoms. Patient denies shortness of breath, wheezing, cough, congestion, nausea, vomiting, diarrhea. MD elicited complaint: sore throat and rhinorrhea Onset (ago): day(s) (2) Severity: mild Able to tolerate fluids by mouth: Yes Exacerbating factors: swallowing Context: sick contacts Associated symptoms: denies other symptoms Treatments prior to arrival: none Related Data Home Medications Medication Instructions Recorded Confirmed No Home Medications 09/28/22 09/28/22 Allergies Allergy/AdvReac Type Severity Reaction Status Date / Time hydrocodone Allergy Severe Rash Verified 09/28/22 09:00 dermaflex Allergy Redness of Uncoded 09/28/22 09:00 Skin Review of Systems Constitutional: Constitutional: Denies chills, Denies fatigue, Denies fever(s) and Denies weakness ENT: Denies vertigo, Denies dizziness and Reports sore throat Comments: runny nose Cardiovascular: Cardiovascular: Denies chest pain Respiratory: Respiratory: Denies cough, Denies dyspnea and Denies wheezing Gastrointestinal: Gastrointestinal: Denies abdominal pain, Denies diarrhea and Denies nausea Integumentary/Breasts: Skin/Breast: Denies rash PMFSH Surgical History Surgical History H/O tubal ligation (~07/19/18) Hx of ovarian cystectomy (~09/25/21) Family History Family History Father Testicular cancer Grandparent Colon cancer Grandparent Lung cancer Grandparent Diabetes mellitus Social History Social History Smoking status: Former smoker Smoking end date: 08/07/19 Alcohol intake: never Substance use: never Substance use type: does not use Lack of Transportation: No Lack of Food: Never True Current Housing: I Have Housing Concerned About Future Housing: No Difficulty Paying Gas/Electric Bills: No Difficulty Paying for Meds: No Currently Unemployed: No Education: Associate Degree Difficulty w/ Childcare or Family Care: No Living arrangements: other Additional living arrangements comments: Occupation/Education: occupation 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 There is no relevant family history pertinent to the presenting complaint. Exam Const: General: healthy appearing and no acute distress Nutritional Appearance: well nourished Orientation/consciousness: patient oriented x3 Limitations: no limitations HENMT: Head: normal to inspection Ears: external ears normal, TM's normal bilaterally and EAC's normal Face/Nose/Sinus: Normal external nose present and Normal nares present Mouth: Yes Normal oral and palatal mucosa present, Yes lip normal and Yes moist mucous membranes Teeth and gingiva: dentition normal Throat: posterior oropharynx normal and uvula midline Eyes: Conjunctivae: conjunctivae normal Neck: Neck: normal visual inspection Chest: Chest palpation & inspection: normal inspection of the chest Resp: Effort & Inspection: normal respiratory effort and not labored Auscultation: clear to auscultation bilaterally, no crackles, no rales and no rh
== END 2022-09-28 09:35 | disposition home or self-care (01) ==
PROVIDERS: Emergency Provider Nurse Practitioner Family
DX: J02.9 Acute pharyngitis, unspecified (principal); Z87.891 Personal history of nicotine dependence
CPT/HCPCS: 87081; 87880; 99213; G0463

== ENCOUNTER 2023-08-22 19:30 | Emergency (ER) | payer OTHER, SELFPAY ==
--- NOTE | ~2023-08-22 | XR_ITS ---
EXAM: XR ankle LT min 3V DATE: 08/22/2023 19:56 HISTORY: rolled left ankle, pain and swelling on distal fib . COMPARISON: None available. FINDINGS: Normal mineralization. No fracture or dislocation. No lytic or blastic lesion. Joint space s are maintained. No erosion or periosteal change. Small joint effusion. Anterior and lateral soft ti ssue swelling. IMPRESSION: No acute osseous finding in the left ankle. Reviewed, dictated and finalized at location K. MANAGER
--- NOTE | 2023-08-22 19:33 | ED.GENADULT ---
HPI - General Adult General Chief complaint: Extremity Injury, Lower Stated complaint: lt ankle injury Time Seen by Provider: 08/22/23 19:33 Source: patient Mode of arrival: ambulatory Limitations: no limitations History of Present Illness HPI narrative: 32-year-old female patient presents to the [facility] with complaints of left ankle pain. Patient states she was at a swim meet today and went to go and step down off of the step and missed a step and rolled her ankle and fell. Patient states she has been taking some ibuprofen today for the pain and trying to elevate it and ice it. Patient denies any numbness or tingling to the toes. Patient states it is painful to put weight on. Related Data Home Medications Medication Instructions Recorded Confirmed No Home Medications 09/28/22 08/22/23 Allergies Allergy/AdvReac Type Severity Reaction Status Date / Time hydrocodone Allergy Severe Rash Verified 08/22/23 19:44 dermaflex Allergy Redness of Uncoded 08/22/23 19:44 Skin Review of Systems Review of Systems: CONSTITUTIONAL: Denies fever, chills, or sweats. EYES: Denies visual changes, redness, or discharge. ENT: Denies rhinorrhea, congestion, sore throat, or otalgia. CARDIOVASCULAR: Denies chest pain, palpitations, or edema. RESPIRATORY: Denies cough or dyspnea. GASTROINTESTINAL: Denies abdominal pain, nausea, vomiting, or diarrhea. GENITOURINARY: Denies dysuria or hematuria. SKIN: Denies rash or itching. MUSCULOSKELETAL: Denies back pain, joint pain, or myalgia. Positive left ankle pain NEUROLOGIC: Denies headache, numbness, or weakness. PSYCHIATRIC: Denies anxiety or depression. [facility] Surgical History Surgical History H/O tubal ligation (~07/19/18) Hx of ovarian cystectomy (~09/25/21) Family History Family History Father Testicular cancer Grandparent Colon cancer Grandparent Lung cancer Grandparent Diabetes mellitus Social History Social History Smoking status: Former smoker Smoking end date: 01/20/20 Alcohol intake: never Substance use: never Substance use type: does not use Lack of Transportation: No Lack of Food: Never True Current Housing: I Have Housing Concerned About Future Housing: No Difficulty Paying Gas/Electric Bills: No Difficulty Paying for Meds: No Currently Unemployed: No Education: Associate Degree Difficulty w/ Childcare or Family Care: No Living arrangements: other Additional living arrangements comments: Occupation/Education: occupation 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 There is no relevant family history pertinent to the presenting complaint. Exam Narrative: GENERAL: Well-appearing, well-nourished, and in no acute distress. HEAD: Normocephalic, atraumatic. EYES: PERRLA and EOMI. ENT: Nares clear, no rhinorrhea or epistaxis. Mucous membranes moist. NECK: Supple. No lymphadenopathy CHEST: Clear to auscultation. No respiratory distress. HEART: Regular rate and rhythm. No murmur heard. Normal peripheral pulses. ABDOMEN: Soft, nontender, nondistended, normal active bowel sounds. EXTREMITIES: Patient is able to bear weight and ambulate back has increase in pain to the left ankle. The L ankle is without obvious asymmetry or deformity when compared to the R ankle. Patient can flex/extend, pain with invert/garry of the left ankle. No obvious surface trauma, ecchymosis, soft tissue swelling noted over the lateral malleolus and mid ankle. body tenderness to palpation over the la
[2023-08-22 19:45] VITALS: BP 127/76; PULSE 89; RESP 18; TEMP 36.8; O2SAT 99
== END 2023-08-22 20:20 | disposition home or self-care (01) ==
PROVIDERS: Emergency Provider Nurse Practitioner Family
DX: S93.402A Sprain of unspecified ligament of left ankle, initial encounter (principal); X50.9XXA Other and unspecified overexertion or strenuous movements or postures, initial encounter; Y93.11 Activity, swimming; Z87.891 Personal history of nicotine dependence
CPT/HCPCS: 73610; 99213; G0463

== ENCOUNTER 2023-11-01 13:31 | Outpatient (CLI) | payer OTHER, SELFPAY ==
--- NOTE | ~2023-11-01 | MR_ITS ---
EXAMINATION: MR ankle LT wo con DATE: 11/01/2023 14:00 INDICATION: Left ankle pain TECHNIQUE: Magnetic resonance imaging (MRI) of the left ankle was performed without intravenous contr ast. Sequences included sagittal, coronal, and axial proton-density weighted fast spin echo without a nd with fat saturation. COMPARISON: None. FINDINGS: Medial ankle ligaments: Deep and superficial deltoid ligaments as well as the spring ligament are normal. Lateral ankle ligaments: The anterior and posterior inferior tibiofibular ligaments are normal. There is prominent thickening and increased signal of the anterior talofibular and calcaneofibular ligaments. There is minimal surr ounding edema, less than would be expected for acute injury but which could be consistent with subacu te injury. The posterior talofibular ligament is normal. Tendons: Achilles tendon is normal. Small amount of fluid in the peroneal tendon sheath along the normal-appea ring peroneus longus and brevis tendons consistent with mild peroneal tenosynovitis. The tibialis ant erior and extensor hallucis longus and extensor digitorum longus tendons are normal. The tibialis pos terior, flexor digitorum longus and flexor hallucis longus tendons are normal. Plantar fascia: Plantar aponeurosis is normal. Bones/other: Bone alignment is normal. There is normal bone marrow signal throughout with no fracture or pathologi c marrow replacing process. The joint space at the left ankle and visualized mid and hindfoot are nor mal. Fluid: Small left ankle joint effusion or in the anterior and posterior recess of the joint space. Otherwise physiologic amount fluid in the remaining joints. IMPRESSION: 1. Likely subacute moderate grade sprains/partial tears of the anterior talofibular and calcaneofibul ar ligaments. 2. Mild peroneal tenosynovitis. 3. Nonspecific small left ankle joint effusion. Reviewed, dictated and finalized at location A. IMPRESSION: 1. Likely subacute moderate grade sprains/partial tears of the anterior talofib ular and calcaneofibular ligaments. 2. Mild peroneal tenosynovitis. 3. Nonspecific small left ankle joint effusion.
== END 2023-11-01 13:32 ==
LOC: MICIMG 13:32
PROVIDERS: PCP Nurse Practitioner Family; Visit Provider Nurse Practitioner Family
DX: M25.572 Pain in left ankle and joints of left foot (principal); M65.872 Other synovitis and tenosynovitis, left ankle and foot; M25.472 Effusion, left ankle
CPT/HCPCS: 73721